=== PATIENT | male | born 1970 | race Caucasian/White ===

== ENCOUNTER → 2017-06-09 | Outpatient (CLI) | payer MEDICAID | LOC: FIMAGING 18:35 | PROVIDERS: ATTEND Orthopaedic Surgery | DX: M23.221 Derangement of posterior horn of medial meniscus due to old tear or injury, right knee (principal); M24.10 Other articular cartilage disorders, unspecified site; M25.461 Effusion, right knee ==

== ENCOUNTER 2017-08-22 11:42 | Day surgery (SDC) | payer MEDICAID ==
--- NOTE | 2017-08-22 06:47 | PDHPUP ---
History & Physical Update H&P update statement: This history and physical update is based on an assessment of the patient which was completed after admission or registration (within 24 hours), but prior to the surgery/procedure. H&P update: no change in patient's condition since H&P completed
[2017-08-22] MEDS ORDERED: ceFAZolin 2 GM/SWFI 2 GM/20 ML SYR IVP ONE (11:56)
[2017-08-22] MEDS ORDERED: ACETAMINOPHEN 500 MG TAB PO ONE (11:56)
[2017-08-22] MEDS ORDERED: LR 1,000 ML IV SCH (11:56)
[2017-08-22] MEDS ORDERED: LR 1,000 ML IV ONE (12:03)
[2017-08-22] MEDS ORDERED: MIDAZOLAM 2 MG/2 ML VIAL IVP ONE (12:09)
[2017-08-22] MEDS ORDERED: EPINEPHrine 30 MG/30 ML MDV (0.1 MG/0.1 ML) ONE (12:35)
[2017-08-22] MEDS ORDERED: BUPIVACAINE/EPI 0.5% 30 ML SDV ONE (12:35)
--- NOTE | 2017-08-22 13:01 | PDANEPAE ---
ANE History of Present Illness 47 yo male with h/o rheumatoid arthritis for repeat R ACL reconstruction. ANE Past Medical History - Cardiovascular History Hx Hypertension: No Hx Arrhythmias: No Hx Chest Pain: No Hx Coronary Artery / Peripheral Vascular Disease: No Hx CHF / Valvular Disease: No Hx Palpitations: No - Pulmonary History Hx COPD: No Hx Asthma/Reactive Airway Disease: No Hx Recent Upper Respiratory Infection: No Hx Oxygen in Use at Home: No Hx Sleep Apnea: No Sleep Apnea Screening Result - Last Documented: Negative - Neurologic History Hx Cerebrovascular Accident: No Hx Seizures: No Hx Dementia: No - Endocrine History Hx Diabetes: No - Renal History Hx Renal Disorders: No - Liver History Hx Hepatic Disorders: No - Neurological & Psychiatric Hx Hx Neurological and Psychiatric Disorders: No - Cancer History Hx Cancer: No - Congenital Disorder History Hx Congenital Disorders: No - GI History Hx Gastrointestinal Disorders: No - Other Health History Other Health History: RHEUMATOID ARTHRITIS - Chronic Pain History Chronic Pain: Yes (RT KNEE) - Surgical History Prior Surgeries: RT KNEE ACL X3. LT KNEE ACL ANE Review of Systems Review of Systems: - Exercise capacity METS (RN): 4 METS - Systems Constitutional: Reports: no symptoms Cardiac: Reports: no symptoms Respiratory: Reports: no symptoms Gastrointestinal: Reports: no symptoms ANE Patient History - Allergies Allergies/Adverse Reactions: No Known Allergies Allergy (Unverified 08/11/17 17:02) - Home Medications Home Medications: Herbals/Supplements -Info Only DAILY 08/11/17 [Last Taken 08/16/17] Humira ONCE 08/11/17 [Last Taken 08/06/17] - NPO status NPO Since - Liquids (Date): 08/22/17 NPO Since - Liquids (Time): 08:00 NPO Since - Solids (Date): 08/21/17 NPO Since - Solids (Time): 22:00 - Anes Hx Anes Hx: no prior problems - Smoking Hx Smoking Status: Never smoked Marijuana use: No - Alcohol Use Alcohol Use: Occasionally (6/week) - Family Anes Hx Family Anes Hx: neg - N/A ANE Labs/Vital Signs - Vital Signs Blood Pressure: 118/83 Heart Rate: 64 Respiratory Rate: 14 O2 Sat (%): 96 Height: 187.96 cm Weight: 100.698 kg ANE Physical Exam - Airway Neck exam: FROM Mallampati Score: Class 2 Mouth exam: normal dental/mouth exam - Pulmonary Pulmonary: clear to auscultation - Cardiovascular Cardiovascular: regular rate and rhythym - ASA Status ASA Status: II ANE Anesthesia Plan Anesthesia Plan: spinal
[2017-08-22] MEDS ORDERED: LIDOCAINE 2% 5 ML SDV ONE (13:36)
[2017-08-22] MEDS ORDERED: DEXAMETHASONE 4 MG/ML VIAL ONE (13:36)
[2017-08-22] MEDS ORDERED: fentaNYL 100 MCG/2 ML INJ ONE (13:36)
[2017-08-22] MEDS ORDERED: PROPOFOL/EMULSION 500 MG/50 ML BOTTLE IV ONE ×3 (13:37→15:24)
[2017-08-22] MEDS ORDERED: THROMBIN (BOVINE) 5,000 UNIT VIAL TP ONE (14:16)
[2017-08-22] MEDS ORDERED: CALCIUM CHLORIDE 1 GM/10 ML INJ ONE (14:16)
[2017-08-22] MEDS ORDERED: ALBUTEROL 3 ML DEYVIAL IH PRN (15:43)
[2017-08-22] MEDS ORDERED: NALOXONE HCL 0.4 MG/ML INJ IVP PRN (15:43)
[2017-08-22] MEDS ORDERED: DIAZEPAM 5 MG/ML 1 ML SYR IVP PRN (15:43)
[2017-08-22] MEDS ORDERED: LR 500 ML IV PRN (15:43)
[2017-08-22] MEDS ORDERED: oxyCODONE IR 5 MG TAB PO PRN (15:43)
[2017-08-22] MEDS ORDERED: ONDANSETRON 4 MG/2 ML VIAL IVP PRN ×2 (15:43→15:59)
[2017-08-22] MEDS ORDERED: fentaNYL 100 MCG/2 ML INJ IVP PRN (15:43)
[2017-08-22] MEDS ORDERED: KETOROLAC 30 MG/1 ML SDV ONE (15:45)
[2017-08-22] MEDS ORDERED: OXYCODONE/APAP 5/325 TAB PO PRN (15:59)
[2017-08-22] MEDS ORDERED: ONDANSETRON DISINTEGRATING 4 MG TAB PO PRN (15:59)
--- NOTE | 2017-08-22 16:00 | POSTANESTH ---
Post Anesthetic Evaluation Cardiovascular Status: Normal, Stable Respiratory Status: Normal, Stable Level of Consciousness/Mental Status: Can Participate in Eval, Alert and Oriented Pain Control: Adequate, Prn Tx Ordered Nausea/Vomiting Control: Adequate, Prn Tx Ordered Complications Possibly Related to Anesthesia: None Noted
[2017-08-22 16:07] VITALS: PULSE 77
[2017-08-22 16:59] VITALS: RESP 16
[2017-08-22 19:23] VITALS: BP 110/70; O2SAT 96
[2017-08-22 19:47] VITALS: TEMP 98.1
--- NOTE | 2017-08-25 07:56 | GOP ---
[f rep st] OPERATIVE REPORT DATE OF OPERATION: 08/22/2017 SURGEON: Dawson Larios MD HAZARDOUS WASTE MATERIAL TECHNICIAN: Brijesh Li CST, who was a medical necessity for the entirety of the case. ALEKSANDER Lawson. PREOPERATIVE DIAGNOSIS: Right knee anterior cruciate ligament disruption, medial meniscus tear, loos e body. POSTOPERATIVE DIAGNOSIS: Right knee anterior cruciate ligament disruption, medial meniscus tear, loo se body. PROCEDURE PERFORMED: 1. Right knee anterior cruciate ligament reconstruction with hybrid graft. 2. Right partial medial meniscectomy. 3. Loose body removal x2. 4. Tendon graft harvest from a distance. FINDINGS: DESCRIPTION OF PROCEDURE: The patient was identified in the preanesthesia area. The right knee nia rly demarcated as operative site with indelible marker. He was given 2 g of Ancef intravenously en r oute to the operative suite. In the OR, general endotracheal anesthesia was administered. Attention was turned to the right knee which was sterilely prepped and draped in the usual fashion. His right leg was positioned in an arthroscopic leg wright. Appropriate time-out procedure was carried out. The limb was exsanguinated with Esmarch bandage. Tourniquet inflated to 275 mmHg. Standard arthrosc opic portal sites created and evaluation of the ACL ensued. There was gross disruption of the ACL te ndon, therefore an anterior medial incision was then made, carried to the sartorius fascia. The sart orius was opened in the origin of its fibers at the upper border and the semi tendinosis stripped int o the proximal muscular belly. This was prepared on the back table in standard fashion with the alma mary of the remaining muscular tissue, suturing in the proximal and distal ends. This was matched wit h an allograft anterior tibialis tendon, which was sutured at the proximal distal ends as well, drape d over an Arthrex ACL tight-rope button and a moistened gauze. Concomitantly, attention was returned to the knee and diagnostic arthroscopy ensued. The suprapatellar pouch demonstrated no loose or for eign debris. The articular surface of the patella demonstrated grade 2 and 3 chondral change diffuse ly and chondroplasty was performed. The trochlea demonstrated grade 2 chondral changes and mild veronica droplasty was performed. The medial gutter demonstrated 2 loose osteocartilaginous bodies, approxima tely 4-5 mm in diameter and these were removed without difficulty. The lateral gutter was without fo reign debris. The medial compartment was entered. The articular surface of the femur demonstrated g rade 1 softening. There was a tear through the anterior horn of the medial meniscus, which was debri ded with arthroscopic shaver to a clean and stable edge. Approximately 30% of the anterior horn was debrided. The intercondylar notch was entered. There was a large osteophyte spur over the lateral f emoral condyle. This was debrided with the arthroscopic bur. The remnants of the ACL were completel y excised, exposing the posterior lateral corner of the notch and the tibial footprint was cleared as well. A notchplasty was performed with a bur including the spur as above. Attention was then turne d laterally. The articular surface of the femur and tibia were intact. The lateral meniscus was sta ble, intact to gentle probing. A femoral tunnel was created with a flip cutter from an inside-out po sition to a depth of 20 mm with a 1 cm flip cutter diameter. All loose particulate debris was withdr awn. A tibial tunnel was made over a guide pin. This did encounter the remnants of the previous ACL reconstruction screw along its border, but the drill was able to pass adjacent to this. All debris was evacuated free. The graft was then drawn with a leading suture and the button flipped over the p osterior lateral cortex of the femur. The graft was drawn into position across the femoral tunnel. Attention was placed across each strand of the graft independently and an 11 x 32 mm Bio[employer]posite scr ew was placed across the tibia. The excess graft was trimmed flush. The knee was taken through full flexion and extension without impingement. The knee was copiously irrigated, all debris evacuated, and the incisions closed using 0 Vicryl, 2-0 Monocryl, and 4-0 nylon. The knee was instilled with 30 cc of 0.5% Marcaine with epinephrine. A sterile compressive dressing was applied followed by a Cryo /Cuff and brace. The patient was awakened, extubated, taken to recovery room in good and stable cond ition. OPERATIVE INDICATIONS: Augusto Hays is a 47-year-old gentleman who has sustained a disruption o f his ACL to his right knee. Clinical and radiographic features are consistent with this. Given the persistent nature of his instability, his age, and activity requirements I have recommended operativ e intervention. I have also outlined addressing the other procedures as listed above. He understood the risks, benefits, alternatives, and wished to proceed. Written consent was signed and placed in patient's chart. TOTAL TOURNIQUET TIME: 1 hour. COMPLICATIONS: None. SPECIMENS TO PATHOLOGY: None. IMPLANTS: As above. DISPOSITION: To the recovery room, then home. He will follow standard ACL recovery. He is weightbe aring as tolerated with the brace locked in extension for the first 2 weeks. Range of motion as tole rated otherwise. /[id number]/MODL
== END 2017-08-22 19:15 | disposition home or self-care (01) ==
LOC: FSGY 11:42
PROVIDERS: ATTEND Orthopaedic Surgery
PROC: 0SBC4ZZ Excision of Right Knee Joint, Percutaneous Endoscopic Approach (ICD-10-PCS; principal; 2017-08-22 13:00)
PROC: 0MUN47Z Supplement Right Knee Bursa and Ligament with Autologous Tissue Substitute, Percutaneous Endoscopic Approach (ICD-10-PCS; principal; 2017-08-22 13:00)
DX: S83.241A Other tear of medial meniscus, current injury, right knee, initial encounter (principal); S83.511A Sprain of anterior cruciate ligament of right knee, initial encounter; Y93.9 Activity, unspecified
CPT/HCPCS: C1713; C1762; J0171; J0690; J1100; J1885; J2250; J2704; J3010

== ENCOUNTER → 2017-11-07 | Outpatient (CLI) | payer MEDICAID | LOC: BMCIMAGING 08:23 | PROVIDERS: ATTEND Orthopaedic Surgery | DX: Z98.890 Other specified postprocedural states (principal); M17.11 Unilateral primary osteoarthritis, right knee ==